=== PATIENT | female | born 1935 | race Caucasian/White ===

== ENCOUNTER 2022-02-12 10:55 | Emergency (ER) | payer BC, MEDICARE, OTHER ==
[~2022-02-12] VITALS: Ht 152.4 cm; Wt 58.0 kg
[~2022-02-12 10:55] MED LIST: GABA300C11 PO; LISI-283 PO; OMEP20CA74 PO
[2022-02-12 12:37] LABS: Basophils # (auto) 0.1 10 ^3/uL (0-0.2); Eosinophils # (auto) 0 10 ^3/uL (0-0.8); Eosinophils % (auto) 0.6 % (0.0-7.0); Hematocrit 41.6 % (36.0-46.0); Lymphocytes % (auto) 14.5 % (10.0-50.0); Mean Corpuscular Hemoglobin 31.2 pg (28.0-32.0); Mean Corpuscular Hgb Conc. 33.7 g/dL (32.0-36.0); Mean Corpuscular Volume 92.6 fL (80.0-100.0); Monocytes # (auto) 0.5 10 ^3/uL (0-1.3); Neutrophils # (auto) 5.4 10 ^3/uL (1.6-8.6); Neutrophils % (auto) 76.9 % (37.0-80.0); Nucleated Red Blood Cells % 0.2 %; Red Blood Cells 4.49 10^6/uL (4.0-5.20); Red Cell Distribution Width 16.5 % (11.8-14.3)
[2022-02-12 12:53] LABS: Albumin 4.2 g/dL (3.4-5.0); BUN/Creatinine Ratio 14.3; Calcium 9.7 mg/dL (8.5-10.1); Total Protein 7.6 g/dL (6.4-8.2)
[2022-02-12 15:16] LABS: Urine Bacteria FEW /hpf (None Seen); Urine Blood Negative /uL (Negative); Urine Mucus FEW (None Seen); Urine Specific Gravity 1.013 (1.001-1.035); Urine WBC 1 /hpf (0 - 5)
[2022-02-12] MEDS ORDERED: HYDR-4902 PO (16:50)
[2022-02-12] MEDS ORDERED: HYDROcodone-ACET 5/325MG TAB PO ONE (17:00)
[2022-02-12 17:43] VITALS: BP 108/72
== END 2022-02-12 17:43 | disposition home or self-care (01) ==
LOC: ER 10:55 → EDUNIT# 10:55 → EDBD 10:55 → ER 17:43
DX: S92.491A Other fracture of right great toe, initial encounter for closed fracture (principal); S09.90XA Unspecified injury of head, initial encounter; I10 Essential (primary) hypertension; F17.210 Nicotine dependence, cigarettes, uncomplicated; Z90.710 Acquired absence of both cervix and uterus; Z79.899 Other long term (current) drug therapy; Z88.0 Allergy status to penicillin; W19.XXXA Unspecified fall, initial encounter; Y93.89 Activity, other specified; Y92.89 Other specified places as the place of occurrence of the external cause; Y99.8 Other external cause status
CPT/HCPCS: 36415; 70450; 70486; 73660; 74176; 80053; 81001; 82962; 84484; 85025; 93005

== ENCOUNTER 2022-10-01 21:47 | Emergency (ER) | payer BC, MEDICARE ==
[~2022-10-01] VITALS: Ht 152.4 cm; Wt 40.8 kg
[~2022-10-01 21:47] MED LIST changes: +HYDR-4902 PO
[2022-10-02] MEDS ORDERED: HYDROcodone-ACET 5/325MG TAB PO ONE (01:00)
[2022-10-02] MEDS ORDERED: ONDANSETRON ODT 4 MG TAB PO ONE (01:00)
[2022-10-02] MEDS ORDERED: ACE3T PO (01:01)
[2022-10-02 01:48] VITALS: BP 131/56
== END 2022-10-02 02:00 | disposition home or self-care (01) ==
LOC: EDUNIT# 21:47 → ER 21:47 → EDBD 21:47 → ER 10-02 02:00
DX: S16.1XXA Strain of muscle, fascia and tendon at neck level, initial encounter (principal); I10 Essential (primary) hypertension; F17.210 Nicotine dependence, cigarettes, uncomplicated; Z90.710 Acquired absence of both cervix and uterus; Z79.899 Other long term (current) drug therapy; Z88.0 Allergy status to penicillin; X58.XXXA Exposure to other specified factors, initial encounter; Y93.89 Activity, other specified; Y92.89 Other specified places as the place of occurrence of the external cause; Y99.8 Other external cause status
CPT/HCPCS: 72125; 93005; 99284; Q0162